=== PATIENT | female | born 1965 | race Caucasian/White ===

== ENCOUNTER → 2017-05-23 | Outpatient (CLI) | payer OTHER ==
[~2017-05-23] MED LIST: CLARITIN; [UNRECOGNIZED DRUG - OTHER]
== END ==
LOC: MC.RAD 05-22 08:40
DX: Z12.31 Encounter for screening mammogram for malignant neoplasm of breast (principal)

== ENCOUNTER → 2018-10-29 | Outpatient (CLI) | payer BC | LOC: MC.RAD 14:17 | DX: Z12.31 Encounter for screening mammogram for malignant neoplasm of breast (principal) ==

== ENCOUNTER → 2021-07-12 | Outpatient (CLI) | payer BC | LOC: MC.RAD 13:00 | DX: Z12.31 Encounter for screening mammogram for malignant neoplasm of breast (principal) ==

== ENCOUNTER 2024-08-02 21:14 | Emergency (ER) | payer SELFPAY ==
[~2024-08-02] VITALS: Ht 162.6 cm; Wt 50.9 kg
[2024-08-02] MEDS ORDERED: Doxycycline Monohydrate 100 MG CAP PO ONE (23:45)
[2024-08-02] MEDS ORDERED: Tdap Vaccine 0.5 ML SYRINGE IM ONE (23:45)
[2024-08-02] MEDS ORDERED: dexAMETHasone 10 MG/ML VIAL PO ONE (23:45)
[2024-08-02] MEDS ORDERED: DOXYCYCLINE 10100 MG PO (23:54)
[2024-08-03 00:14] VITALS: BP 137/86; PULSE 66; TEMP 98.5
== END 2024-08-03 00:14 | disposition home or self-care (01) ==
LOC: COL.ER 21:14
DX: L03.115 Cellulitis of right lower limb (principal)
CPT/HCPCS: J1100